=== PATIENT | female | born 1950 | race Caucasian/White ===

== ENCOUNTER 2022-01-30 12:00 | Day surgery (SDC) | payer OTHER ==
[2022-01-29 14:51] LABS: Absolute Lymphocytes (CBC) 1.5 K/uL (0.7-4.9); Hematocrit 38.7 % (36.0-45.0); Lymphocytes % 16.3 % (15.3-44.8); MCV 88.4 fL (80-100); MPV 7.1 fL (7.6-11.3); RBC Red Blood Cell Count 4.38 M/uL (3.86-4.86)
[2022-01-29 15:04] LABS: Potassium 3.5 mmol/L (3.5-5.1)
[2022-01-29 15:05] LABS: Protime INR 1.04
--- NOTE | 2022-01-29 15:13 | RAD REPORT ---
EXAM DESCRIPTION: RAD - Chest Pa And Lat (2 Views) - 01/29/2022 2:37 pm CLINICAL HISTORY: pre op Chest pain. COMPARISON: No comparisons FINDINGS: The lungs are clear. The heart is upper limit of normal in size. No displaced fractures. IMPRESSION: No acute or concerning finding suspected.
[~2022-01-30 12:00] MED LIST: ATROPINE SULF 1 MG/10 ML SYR IV ONE; FENTANYL CITR 100 MCG/2 ML ONE; HEPA 1000U/500MLS 2,000 UNIT/1,000 ML BAG IV ONE; HEPARIN 10,000 UNIT/10 ML VIAL IV ONE; HEPARIN 5000 UNIT/ML 1 ML VIAL ONE; LIDOCAINE 1% 20 ML MDV ONE; MIDAZOLAM HCL 2 MG/2 ML INJ ONE; NITROGLYCERIN 100 MCG/ML SYR (for cath lab use only) IV ONE; NITROGLYCERIN/D5W 25 MG/250 ML BTL IV ONE; VERAPAMIL HCL 10 MG/4 ML VIAL IV ONE
--- NOTE | 2022-01-30 13:00 | EKG ---
Test Date: 2022-01-29 Test Time: 14:24:06 Publicity Director: ST MEASUREMENT RESULTS: Intervals: Rate: 73 [place]: 162 QRSD: 92 QT: 406 QTc: 447 [place]: P: 18 [place]: 162 QRS: -16 T: 68 INTERPRETIVE STATEMENTS: Sinus rhythm with occasional premature ventricular complexes and premature atrial complexes Left ventricular hypertrophy with repolarization abnormality Abnormal ECG No previous ECG available for comparison Electronically Signed On 01-30-22 12:59:27 CRUSHER SETTER by Vince Wilson
[2022-01-30] MEDS ORDERED: ASPIRIN 325 MG TAB ONE (13:21)
[2022-01-30] MEDS ORDERED: CLOPIDOGREL 75 MG TABLET ONE (13:21)
[2022-01-30] MEDS ORDERED: TICAGRELOR 90 MG TABLET PO ONE (13:22)
[2022-01-30 16:33] VITALS: BP 105/80; O2SAT 97
--- NOTE | 2022-01-30 19:12 | OP ---
Date of Procedure: 01/30/2022 Surgeon: KAYLYNN NANCE Procedure Performed: Selective coronary angiogram. 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 Access: Right radial artery 6-[place] closed with TR band. Complications: None. Estimated Blood Loss: Bleeding less than 10 mL. Anesthesia: Total sedation time was 20 minutes. Description Of Procedure: After risks, benefits, and alternatives were explained, patient agreed to procedure and signed informed consent. Patient was brought into the cardiac catheterization laborato ry and prepped and draped in usual sterile fashion. Then I accessed the radial artery using [employer] c micropuncture kit, placed 6-[place] Slender sheath and then took 5-[place] 4 catheter into aort ic root, engaged left main and right coronary artery, took standard views and then removed the cathet er and sheath and placed TR band with good hemostasis. Findings: 1.Left main: Large and normal. 2.LAD: Large vessel, normal. Normal diagonal branches. 3.Left circumflex is large and codominant and normal. Normal OM branches. 4.RCA: It is large and codominant and normal. Conclusion: Normal coronary arteries. Plan: Proceed with surgical repair of thoracic aneurysm as planned. No need for bypass. The patien t had moderate aortic valve stenosis and likely will have an aortic valve replacement as well. SR/MODL Voice ID: [id number] Report ID: [id number]
== END 2022-01-30 16:05 | disposition home or self-care (01) ==
LOC: CCL 12:00
PROVIDERS: ATTEND Internal Medicine
DX: I71.20 Thoracic aortic aneurysm, without rupture, unspecified (principal); I35.0 Nonrheumatic aortic (valve) stenosis; I10 Essential (primary) hypertension; E78.5 Hyperlipidemia, unspecified; Z79.899 Other long term (current) drug therapy; Z88.5 Allergy status to narcotic agent
CPT/HCPCS: 93005; 85025; 80048; 36415; 85610; 85347 ×2; 85730; 71046; 93454; 76937; C1893; Q9966; J1644 ×2; J2250; J3010; J0461